=== PATIENT | male | born 1975 | race Caucasian/White ===

== ENCOUNTER 2017-08-23 22:07 | Emergency (ER) | payer SELFPAY ==
[2017-08-23 22:12] VITALS: BP 132/97
== END 2017-08-24 00:42 | disposition home or self-care (01) ==
LOC: ED 22:07
DX: J06.9 Acute upper respiratory infection, unspecified (principal); M79.1 Myalgia
CPT/HCPCS: J1885

== ENCOUNTER 2017-08-27 07:34 | Inpatient (IN) | payer MEDICAID ==
[~2017-08-27] VITALS: Ht 180.3 cm; Wt 74.5 kg
[2017-08-27 07:37] VITALS: Ht 180.3 cm; Wt 74.5 kg
[2017-08-27 08:41] LABS: microscopic required? NO
[2017-08-27 08:51] LABS: BASOPHIL % 0.8 % (0-2); PLATELET COUNT 205 x10^3mcL (130-400); RED CELL DISTRIBUTION WIDTH 11.9 % (11.5-14.5)
[2017-08-27 08:56] LABS: CALCIUM 8.5 mg/dL (8.5-10.1); CARBON DIOXIDE 28.7 mmol/L (21-32); CHLORIDE SERUM 108 mmol/L (98-107); CREATININE SERUM 0.8 mg/dL (0.7-1.3); GFR1 > 60 mL/min; GLUCOSE SERUM 140 mg/dL (74-106); POTASSIUM SERUM 3.2 mmol/L (3.5-5.1); SODIUM SERUM 143 mmol/L (136-145)
[2017-08-27 09:01] LABS: ALKALINE PHOSPHATASE 84 U/L (46-116); ALT/SGPT 18 U/L (16-63); AST/SGOT 16 U/L (15-37); BILIRUBIN TOTAL 0.18 mg/dL (0.20-1.00); TOTAL PROTEIN, SERUM 6.1 g/dL (6.4-8.2)
[2017-08-27 09:24] LABS: UA SPECIFIC GRAVITY 1.015 (1.005-1.035); urine erythrocyte NEGATIVE (NEGATIVE)
[2017-08-27 11:51] LABS: AMPHETAMINE QUAL UR NONE DETECTED (NEG <=1000)
[2017-08-27] MEDS ORDERED: ZYPREXA (12:02)
[2017-08-27] MEDS ORDERED: ABILIFY (12:02)
[2017-08-27 12:59] LABS: FREE THYROXINE INDEX 2.7 ug/dL (1.4-4.5); T4(THYROXINE) 8.1 ug/dL (4.7-13.3)
[2017-08-27 13:42] LABS: CHOLESTEROL/HDL RATIO 2.9; MAGNESIUM 1.6 mg/dL (1.8-2.4); PHOSPHOROUS 3.4 mg/dL (2.5-4.9)
[2017-08-27 13:55] LABS: T3 TOTAL 1.46 ng/mL
[2017-08-27 16:29] VITALS: BP 116/65
[2017-08-27 18:19] LABS: RED BLOOD CELLS 4.28 M/mm3 (4.52-5.90)
[2017-08-27] MEDS ORDERED: THO25 PO (22:38)
[2017-08-27] MEDS ORDERED: QUETIAPINE FUMA25 M1 PO (22:38)
[2017-08-27 22:39] VITALS: BP 116/65
== END 2017-08-27 23:59 | disposition short-term general hospital (02) | DRG 750 ==
LOC: ED 07:34 → DU 12:05
PROVIDERS: Family Medicine; Specialist
DX: F20.0 Paranoid schizophrenia (principal); D68.69 Other thrombophilia; E44.0 Moderate protein-calorie malnutrition; R45.851 Suicidal ideations; E83.42 Hypomagnesemia; Z59.0 Homelessness; Z91.14 Patient's other noncompliance with medication regimen; R73.03 Prediabetes; E87.6 Hypokalemia; D64.9 Anemia, unspecified
CPT/HCPCS: 83880; 84439; G0480; Q0092; Q0161